=== PATIENT | female | born 1940 | race Caucasian/White ===

== ENCOUNTER 2018-06-21 18:01 | Inpatient (IN) | payer MEDICARE, OTHER ==
[2018-06-21] MEDS ORDERED: Diltiazem 50 MG/10 ML SDV IVPUSH STA ×2 (18:17→19:17)
[2018-06-21] MEDS ORDERED: Diltiazem 125 MG in Sodium Chloride 0.9% 100 ML IV SCH (18:30)
[2018-06-21] MEDS ORDERED: Rivaroxaban 10 MG Tab PO STA (18:47)
--- NOTE | 2018-06-21 18:53 | EDM.PDOC ---
ED HPI GENERAL MEDICAL PROBLEM - General Chief Complaint: Cardiovascular Problem Stated Complaint: RAPID HEART RATE/ SHAKEY Time Seen by Provider: 06/21/18 18:11 Source of Information: Reports: Patient, Family (), RN Notes Reviewed History Limitations: Reports: No Limitations - History of Present Illness INITIAL COMMENTS - FREE TEXT/NARRATIVE: The patient and her are visiting from the [facility] in [place], driving to [place]. 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 She states that when she got on the bed, it felt like it was vibrating. The patient appreciate her own heartbeat. No associated dyspnea or chest pain. She states that she had slight lightheadedness when she was exerting herself, but has none at rest. No prior similar symptoms. - Related Data Allergies Allergy/AdvReac Type Severity Reaction Status Date / Time No Known Allergies Allergy Verified 06/21/18 18:08 Home Meds: Home Meds Hydrochlorothiazide [Microzide] 0 mg PO DAILY 06/21/18 [History] Levothyroxine Sodium [Synthroid] 0 mcg PO DAILY 06/21/18 [History] Lisinopril/Hydrochlorothiazide [Lisinopril-HCTZ 10-12.5 MG] 0 mg PO DAILY [History] Past Medical History Cardiovascular History: Reports: Hypertension Gastrointestinal History: Reports: Hemorrhoids (internal) Musculoskeletal History: Reports: Other (See Below) Other Musculoskeletal History: osteopenia;left sciatica issues Endocrine/Metabolic History: Reports: Hypothyroidism, Osteopenia - Past Surgical History HEENT Surgical History: Reports: Tonsillectomy GI Surgical History: Reports: Colonoscopy, Other (See Below) (Exploratory laparoscopy) Social & Family History - Tobacco Use Smoking Status *Q: Never Smoker Second Hand Smoke Exposure: No - Caffeine Use Caffeine Use: Reports: Coffee - Alcohol Use Alcohol Use History: Yes Alcohol Use Frequency: Socially - Recreational Drug Use Recreational Drug Use: No - Living Situation & Occupation Living situation: Reports: , with Spouse Occupation: Retired ED ROS GENERAL - Review of Systems Review Of Systems: ROS reveals no pertinent complaints other than HPI. ED EXAM, GENERAL - Physical Exam Exam: See Below Exam Limited By: No Limitations General Appearance: Alert, WD/WN, No Apparent Distress Eye Exam: Bilateral Eye: EOMI, Normal Inspection Ears: Normal External Exam, Hearing Grossly Normal Nose: Normal Inspection Throat/Mouth: Normal Inspection, Normal Lips, Normal Voice, No Airway Compromise Head: Atraumatic, Normocephalic Neck: Normal Inspection, Full Range of Motion Respiratory/Chest: No Respiratory Distress, Lungs Clear, Normal Breath Sounds, No Accessory Muscle Use Cardiovascular: Normal Peripheral Pulses, No Edema, No Gallop, No JVD, No Murmur , No Rub, Tachycardia, Irregularly Irregular Peripheral Pulses: 4+: Radial (L), Radial (R) GI/Abdominal: Normal Bowel Sounds, Soft, Non-Tender, No Organomegaly, No Distention, No Abnormal Bruit, No Mass (Female) Exam: Deferred Rectal (Female) Exam: Deferred Back Exam: Normal Inspection, Full Range of Motion, NT Extremities: Normal Inspection, Normal Range of Motion, No Pedal Edema, Normal Capillary Refill Neurological: Alert, Oriented, Normal Cognition, No Motor/Sensory Deficits Psychiatric: Normal Affect Skin Exam: Warm, Dry, Intact, Normal Color, No Rash EKG INTERPRETATION EKG Date: 06/21/18 Time: 18:12 Rhythm: A-Flutter (with 2:1 conduction) Rate (Beats/Min): 138 [place]: Normal P-Wave: Present QRS: Normal ST-T: Normal QT: Prolonged (QTc 596 ms) Comparison: NA - No Prior EKG Course - Vital Signs Last Recorded V/S: Last Vital Signs Temp 35.8 C 06/21/18 18:10 Pulse 133 H 06/21/18 18:35 Resp 20 06/21/18 18:10 BP 136/71 06/21/18 18:35 Pulse Ox 100 06/21/18 18:10 - Orders/Labs/Meds Orders: Active Orders 24 hr Category Date Time Status EKG Documentation Completion [RC] ASDIRECTED Care 06/21/18 18:09 Active Chest 1V Frontal [CR] Stat Exams 06/21/18 18:18 Taken Diltiazem 125 mg Med 06/21/18 18:30 Active Sodium Chloride 0.9% [Normal Saline] 100 ml IV TITRATE Magnesium Sulfate/Water [Magnesium Sulfate 2 GM in Med 06/21/18 19:05 Ordered Water 50 ML] 2 gm Premix Bag 1 bag IV ONETIME Sodium Chloride 0.9% @ 150 MLS/HR (1000ml Bag) Med 06/21/18 19:15 Ordered Sodium Chloride 0.9% [Normal Saline] 1,000 ml IV ASDIRECTED EKG 12 Lead [EK] Stat Ther 06/21/18 18:09 Ordered Medication Orders Diltiazem HCl 125 mg/ Sodium (Chloride) 125 mls @ 10 mls/hr IV TITRATE ROHAN; Protocol Last Admin: 06/21/18 18:34 Dose: 10 mg/hr, 10 mls/hr Labs: Laboratory Tests 06/21/18 06/21/18 06/21/18 Range/Units 18:19 18:19 18:19 WBC 6.04 (3.98-10.04) K/mm3 RBC 4.79 (3.98-5.22) M/mm3 Hgb 13.9 (11.2-15.7) gm/L Hct 41.1 (34.1-44.9) % MCV 85.8 (79.4-94.8) fl MCH 29.0 (25.6-32.2) pg MCHC 33.8 (32.2-35.5) g/dl RDW Std Deviation 42.4 (36.4-46.3) fL Plt Count 252 (182-369) K/mm3 MPV 9.0 L (9.4-12.3) fl Neutrophils % (Manual) 49 (40-60) % Band Neutrophils % 0 (0-10) % Lymphocytes % (Manual) 44 H (20-40) % Atypical Lymphs % 0 % Monocytes % (Manual) 5 (2-10) % Eosinophils % (Manual) 2 (0.7-5.8) % Basophils % (Manual) 0 L (0.1-1.2) Platelet Estimate Adequate Plt Morphology Comment Normal RBC Morph Comment Normal D-Dimer, Quantitative < 0.19 L (0.19-0.50) mg/L Sodium 130 L (136-145) mEq/L Potassium 3.2 L (3.5-5.1) mEq/L Chloride 91 L (98-107) mEq/L Carbon Dioxide 26 (21-32) mEq/L Anion Gap 16.2 H (5-15) BUN 12 (7-18) mg/dL Creatinine 0.8 (0.55-1.02) mg/dL Est Cr Clr Drug Dosing 59.41 mL/min Estimated GFR (MDRD) > 60 (>60) mL/min BUN/Creatinine Ratio 15.0 (14-18) Glucose 107 (83-115) mg/dL Calcium 9.4 (8.5-10.1) mg/dL Magnesium 1.6 L (1.8-2.4) mg/dl Total Bilirubin 0.7 (0.2-1.0) mg/dL AST 31 (15-37) U/L ALT 29 (14-59) U/L Alkaline Phosphatase 62 (46-116) U/L Troponin I 0.059 H* (0.00-0.056) ng/mL Total Protein 7.9 (6.4-8.2) g/dl Albumin 4.6 (3.4-5.0) g/dl Globulin 3.3 gm/dL Albumin/Globulin Ratio 1.4 (1-2) Meds: Medications Generic Name Dose Route Start Last Admin Trade Name Freq PRN Reason Stop Dose Admin Diltiazem HCl 125 mg/ Sodium 125 mls @ 10 mls/hr 06/21/18 18:30 06/21/18 18: 34 Chloride IV 10 mg/hr TITRATE ROHAN 10 mls/hr Administration Protocol 10 MG/HR Discontinued Medications Generic Name Dose Route Start Last Admin Trade Name Freq PRN Reason Stop Dose Admin Diltiazem HCl 5 mg 06/21/18 18:17 06/21/18 18:35 Cardizem IVPUSH 06/21/18 18:18 5 mg ONETIME STA Administration Rivaroxaban 20 mg 06/21/18 18:47 06/21/18 18:55 Xarelto PO 06/21/18 18:48 20 mg ONETIME STA Administration - Re-Assessments/Exams Free Text/Narrative Re-Assessment/Exam: 06/21/18 18:48 The patient's ECG appears to demonstrate atrial flutter with 2-1 conduction, however, on examination, her heart rate was irregularly irregular, and looking at the monitor, it appears that the patient is in atrial fibrillation. The patient was given a small dose of IV Cardizem, and is now on a Cardizem drip , that we will titrate to a heart rate under 100. After discussing the pros and cons of a variety of different anticoagulants, the patient has agreed to begin with Xarelto. We will provide the patient a coupon for a 30 day free supply, and after she is discharged from the hospital and returns home to [place], she can follow-up with her PCP to determine which long-term anticoagulant she would like to be on. 06/21/18 19:04 Portable chest radiograph appears to be grossly normal. Cardiac silhouette is within normal limits. No pulmonary vascular congestion. No pleural effusions. No focal infiltrate. No pneumothorax. Formal read per the Radiologist pending. 06/21/18 19:05 The patient's sodium has returned low at 132, potassium low at 3.2, with a magnesium low at 1.6. I have ordered NS at 150 mL per hour, and a 2g Mg-rider. After the magnesium has finished infusing, her potassium will need to be replaced. The patient's troponin has returned slightly elevated at 0.059. This does not indicate genuine cardiac damage, although should be repeated. I am recommending admission to the hospital. 06/21/18 19:11 The above was relayed to the patient and her . They are agreeable to being admitted. 06/21/18 19:[address] Sanders at 19:11. He agreed to the patient being admitted to telemetry. The patient's heart rate is around 115 to 120. I will order another 5 mg Cardizem IV push and increase the cardizem gtt to 15 mg/hr. 06/21/18 19:29 Notified that the patient meets criterion for inpatient, to the ICU. Departure - Departure Time of Disposition: 19:14 Disposition: Admitted As Inpatient 67 Condition: Fair Clinical Impression: New onset atrial fibrillation, Hyponatremia, Hypokalemia, Hypomagnesemia, Elevated troponin - My Orders Last 24 Hours: My Active Orders 06/21/18 18:09 EKG Documentation Completion [RC] ASDIRECTED EKG 12 Lead [EK] Stat 06/21/18 18:18 Chest 1V Frontal [CR] Stat 06/21/18 18:30 Diltiazem 125 mg Sodium Chloride 0.9% [Normal Saline] 100 ml IV TITRATE 06/21/18 19:05 Magnesium Sulfate/Water [Magnesium Sulfate 2 GM in Water 50 ML] 2 gm Premix Bag 1 bag IV ONETIME 06/21/18 19:15 Sodium Chloride 0.9% @ 150 MLS/HR (1000ml Bag) Sodium Chloride 0.9% [Normal Saline] 1,000 ml IV ASDIRECTED - Assessment/Plan Last 24 Hours: My Active Orders 06/21/18 18:09 EKG Documentation Completion [RC] ASDIRECTED EKG 12 Lead [EK] Stat 06/21/18 18:18 Chest 1V Frontal [CR] Stat 06/21/18 18:30 Diltiazem 125 mg Sodium Chloride 0.9% [Normal Saline] 100 ml IV TITRATE 06/21/18 19:05 Magnesium Sulfate/Water [Magnesium Sulfate 2 GM in Water 50 ML] 2 gm Premix Bag 1 bag IV ONETIME 06/21/18 19:15 Sodium Chloride 0.9% @ 150 MLS/HR (1000ml Bag) Sodium Chloride 0.9% [Normal Saline] 1,000 ml IV ASDIRECTED
[2018-06-21] MEDS ORDERED: Magnesium Sulfate/Water 2 GM in Premix Bag 1 BAG IV ONE (19:05)
[2018-06-21] MEDS: Diltiazem 125 MG in Sodium Chloride 0.9% 100 ML IV SCH (19:25)
[2018-06-21] MEDS: Sodium Chloride 0.9% 1,000 ML IV SCH (20:55)
[2018-06-21] MEDS ORDERED: Ketorolac 30 MG/ML SDV IV PRN (21:01)
[2018-06-21] MEDS ORDERED: Bisacodyl 5 MG Tab PO PRN (21:01)
[2018-06-21] MEDS ORDERED: Ondansetron 4 MG Tab.DIS PO PRN (21:01)
[2018-06-21] MEDS ORDERED: Polyethylene Glycol 3350 Powder 17 GM Packet PO PRN (21:01)
[2018-06-21] MEDS ORDERED: Magnesium Hydroxide 400 MG/5 ML Susp 30 ML Cup PO PRN (21:01)
[2018-06-21] MEDS ORDERED: Temazepam 7.5 MG Cap PO PRN (21:01)
[2018-06-21] MEDS ORDERED: Albuterol 0.083% 2.5 MG/3 ML Neb Soln NEB PRN (21:01)
[2018-06-21] MEDS ORDERED: Ondansetron 4 MG/2 ML SDV IV PRN (21:01)
[2018-06-21] MEDS ORDERED: Acetaminophen 325 MG Tab PO PRN (21:01)
[2018-06-21] MEDS ORDERED: HYDROmorphone 0.5 MG/0.5 ML SYRINGE IVPUSH PRN (21:01)
[2018-06-21] MEDS ORDERED: Albuterol/Ipratropium 3.0-0.5 MG/3 ML Neb Soln NEB PRN (21:01)
[2018-06-21] MEDS ORDERED: Docusate Sodium 100 MG Cap PO PRN (21:01)
--- NOTE | 2018-06-21 21:26 | PCM.HP ---
H&P History of Present Illness - General Date of Service: 06/21/18 Admit Problem/Dx: Admission Diagnosis/Problem Admission Diagnosis/Problem Atrial fibrillation Source of Information: Patient, Provider History Limitations: Reports: No Limitations - History of Present Illness Initial Comments - Free Text/Narative: HPI: This is a 78 yo female with past medical hx/o HTN, Hypothyroid, Hemorrhoids, Osteopenia who comes in for new onset Afib, elevated troponin, and electrolyte abnormalities. Pt c/o palpitations, "vibrating" feeling in chest, light- headedness with exertion, chronic sinus congestion and constipation. She reports no F/C, chest pain, SOB, nausea, vomiting, diarrhea. Her symptoms improved after receiving Diltiazem, Xaralto, IVF and Magnesium in the ED. Her initial workup in the ED showed a CBC remarkable for MPV 9, Lymph 44 %. Her chemistry is remarkable for Na 130, K 3.2, Cl 91, A Gap 16.2, Mg 1.6. D- dimer <0.19. Troponin elevated at 0.059. EKG shows HR 138, A Flutter with prolonged QT interval. Principal Statistical Scientist shows Atrial Fibrillation. CXR shows no acute abnormalities per ED read. She is subsequently admitted to the ICU. She is a full code. Her PCP is out of town; she is from [place]. - Related Data Allergies/Adverse Reactions: Allergies Allergy/AdvReac Type Severity Reaction Status Date / Time No Known Allergies Allergy Verified 06/21/18 18:08 Home Medications: Home Meds Hydrochlorothiazide [Microzide] 0 mg PO DAILY 06/21/18 [History] Levothyroxine Sodium [Synthroid] 0 mcg PO DAILY 06/21/18 [History] Lisinopril/Hydrochlorothiazide [Lisinopril-HCTZ 10-12.5 MG] 0 mg PO DAILY [History] Past Medical History Cardiovascular History: Reports: Hypertension Gastrointestinal History: Reports: Hemorrhoids Musculoskeletal History: Reports: Other (See Below) Other Musculoskeletal History: osteopenia;left sciatica issues Endocrine/Metabolic History: Reports: Hypothyroidism, Osteopenia - Past Surgical History HEENT Surgical History: Reports: Tonsillectomy GI Surgical History: Reports: Colonoscopy, Other (See Below) Social & Family History - Tobacco Use Smoking Status *Q: Never Smoker Second Hand Smoke Exposure: No - Caffeine Use Caffeine Use: Reports: Coffee - Recreational Drug Use Recreational Drug Use: No - Living Situation & Occupation Living situation: Reports: , with Spouse Occupation: Retired H&P Review of Systems - Review of Systems: Review Of Systems: See Below General: Reports: No Symptoms. Denies: Fever, Chills, Weakness, Fatigue HEENT: Reports: Glasses, Sinus Congestion (chronic) Pulmonary: Reports: No Symptoms. Denies: Shortness of Breath Cardiovascular: Reports: Lightheadedness (with exertion), Blood Pressure Problem. Denies: Chest Pain, Dyspnea on Exertion, Orthopnea, Edema Gastrointestinal: Reports: Constipation. Denies: Abdominal Pain, Diarrhea, Decreased Appetite, Nausea, Vomiting Genitourinary: Reports: No Symptoms. Denies: Dysuria, Frequency, Burning, Pain , Urgency Musculoskeletal: Reports: No Symptoms Skin: Reports: No Symptoms Psychiatric: Reports: No Symptoms Neurological: Reports: No Symptoms. Denies: Dizziness, Headache, Syncope Hematologic/Lymphatic: Reports: No Symptoms Immunologic: Reports: No Symptoms Exam - Exam Exam: See Below - Vital Signs Vital Signs: Last Vital Signs Temp 96.5 F 06/21/18 18:10 Pulse 111 H 06/21/18 19:25 Resp 20 06/21/18 18:10 BP 137/113 H 06/21/18 19:25 Pulse Ox 100 06/21/18 18:10 Weight: 136 lb 14.4 oz - Exam Quality Assessment: DVT Prophylaxis. No: Supplemental Oxygen General: Alert, Oriented, Cooperative, Mild Distress HEENT: PERRLA, Hearing Intact, Mucosa Moist & Chical, Nares Patent, Normal Nasal Septum, Posterior Pharynx Clear, Conjunctiva Clear, EOMI, EACs Clear, TMs Clear Neck: Supple, Trachea Midline, 2 Lungs: Clear to Auscultation, Normal Respiratory Effort Cardiovascular: Irregular Rhythm. No: Regular Rate (irregular) GI/Abdominal Exam: Normal Bowel Sounds, Soft, Non-Tender, No Organomegaly, No Distention, No Abnormal Bruit, No Mass, Pelvis Stable (Female) Exam: Deferred Rectal (Female) Exam: Deferred Back Exam: Normal Inspection, Full Range of Motion, NT Extremities: Normal Inspection, Normal Range of Motion, Non-Tender, No Pedal Edema, Normal Capillary Refill Peripheral Pulses: 3+: Posterior Tibial (L), Posterior Tibial (R), Dorsalis Pedis (L), Dorsalis Pedis (R) Skin: Warm, Dry, Intact Neurological: Cranial Nerves Intact (grossly) Neuro Extensive - Mental Status: Alert, Oriented x3, Normal Mood/Affect, Normal Cognition Psychiatric: Alert, Normal Affect, Normal Mood - Patient Data Lab Results Last 24 hrs: Laboratory Results - last 24 hr 06/21/18 06/21/18 06/21/18 Range/Units 18:19 18:19 18:19 WBC 6.04 (3.98-10.04) K/mm3 RBC 4.79 (3.98-5.22) M/mm3 Hgb 13.9 (11.2-15.7) gm/L Hct 41.1 (34.1-44.9) % MCV 85.8 (79.4-94.8) fl MCH 29.0 (25.6-32.2) pg MCHC 33.8 (32.2-35.5) g/dl RDW Std Deviation 42.4 (36.4-46.3) fL Plt Count 252 (182-369) K/mm3 MPV 9.0 L (9.4-12.3) fl Neutrophils % (Manual) 49 (40-60) % Band Neutrophils % 0 (0-10) % Lymphocytes % (Manual) 44 H (20-40) % Atypical Lymphs % 0 % Monocytes % (Manual) 5 (2-10) % Eosinophils % (Manual) 2 (0.7-5.8) % Basophils % (Manual) 0 L (0.1-1.2) Platelet Estimate Adequate Plt Morphology Comment Normal RBC Morph Comment Normal D-Dimer, Quantitative < 0.19 L (0.19-0.50) mg/L Sodium 130 L (136-145) mEq/L Potassium 3.2 L (3.5-5.1) mEq/L Chloride 91 L (98-107) mEq/L Carbon Dioxide 26 (21-32) mEq/L Anion Gap 16.2 H (5-15) BUN 12 (7-18) mg/dL Creatinine 0.8 (0.55-1.02) mg/dL Est Cr Clr Drug Dosing 59.41 mL/min Estimated GFR (MDRD) > 60 (>60) mL/min BUN/Creatinine Ratio 15.0 (14-18) Glucose 107 (83-115) mg/dL Calcium 9.4 (8.5-10.1) mg/dL Magnesium 1.6 L (1.8-2.4) mg/dl Total Bilirubin 0.7 (0.2-1.0) mg/dL AST 31 (15-37) U/L ALT 29 (14-59) U/L Alkaline Phosphatase 62 (46-116) U/L Troponin I 0.059 H* (0.00-0.056) ng/mL Total Protein 7.9 (6.4-8.2) g/dl Albumin 4.6 (3.4-5.0) g/dl Globulin 3.3 gm/dL Albumin/Globulin Ratio 1.4 (1-2) Result Diagrams: 06/21/18 18:19 06/21/18 18:19 - Problem List (1) Elevated troponin SNOMED Code(s): 622159101, 284938622, 238326090 ICD Code: R74.8 - ABNORMAL LEVELS OF OTHER SERUM ENZYMES Status: Acute Current Visit: Yes (2) Hypokalemia SNOMED Code(s): 81267674 ICD Code: E87.6 - HYPOKALEMIA Status: Acute Current Visit: Yes (3) Hypomagnesemia SNOMED Code(s): 449579071 ICD Code: E83.42 - HYPOMAGNESEMIA Status: Acute Current Visit: Yes (4) Hyponatremia SNOMED Code(s): 36732575 ICD Code: E87.1 - HYPO-OSMOLALITY AND HYPONATREMIA Status: Acute Current Visit: Yes (5) New onset atrial fibrillation SNOMED Code(s): 81794568 ICD Code: I48.91 - UNSPECIFIED ATRIAL FIBRILLATION Status: Acute Current Visit: Yes Problem List Initiated/Reviewed/Updated: Yes Orders Last 24hrs: Active Orders 24 hr Category Date Time Status Admission Status [Patient Status] [ADT] Routine ADT 06/21/18 20:18 Active Cardiac Monitoring [RC] CONTINUOUS Care 06/21/18 21:01 Active Height and Weight [RC] DAILY Care 06/21/18 21:01 Active Intake and Output [RC] QSHIFT Care 06/21/18 21:01 Active May Shower [RC] ASDIRECTED Care 06/21/18 21:01 Active Oxygen Therapy [RC] PRN Care 06/21/18 21:01 Active Pulse Oximetry [RC] PRN Care 06/21/18 21:01 Active RT Aerosol Therapy [RC] ASDIRECTED Care 06/21/18 21:03 Active Up ad Celena [RC] ASDIRECTED Care 06/21/18 21:01 Active VTE/DVT Education [RC] PER UNIT ROUTINE Care 06/21/18 21:01 Active Vital Signs [RC] Q4H Care 06/21/18 21:01 Active Heart Healthy Diet [DIET] Diet 06/22/18 Breakfast Active Chest 1V Frontal [CR] Stat Exams 06/21/18 18:18 Taken Echo Comp wo Cont [US] Routine Exams 06/21/18 21:07 Ordered BASIC METABOLIC PANEL,BMP [CHEM] AM Lab 06/22/18 05:11 Ordered BASIC METABOLIC PANEL,BMP [CHEM] AM Lab 06/23/18 05:11 Ordered BASIC METABOLIC PANEL,BMP [CHEM] AM Lab 06/24/18 05:11 Ordered BASIC METABOLIC PANEL,BMP [CHEM] AM Lab 06/25/18 05:11 Ordered BASIC METABOLIC PANEL,BMP [CHEM] AM Lab 06/26/18 05:11 Ordered CBC WITH AUTO DIFF [HEME] AM Lab 06/22/18 05:11 Ordered CBC WITH AUTO DIFF [HEME] AM Lab 06/23/18 05:11 Ordered CBC WITH AUTO DIFF [HEME] AM Lab 06/24/18 05:11 Ordered CBC WITH AUTO DIFF [HEME] AM Lab 06/25/18 05:11 Ordered CBC WITH AUTO DIFF [HEME] AM Lab 06/26/18 05:11 Ordered MAGNESIUM [CHEM] AM Lab 06/22/18 05:11 Ordered MAGNESIUM [CHEM] AM Lab 06/23/18 05:11 Ordered MAGNESIUM [CHEM] AM Lab 06/24/18 05:11 Ordered MAGNESIUM [CHEM] AM Lab 06/25/18 05:11 Ordered MAGNESIUM [CHEM] AM Lab 06/26/18 05:11 Ordered TROPONIN I [CHEM] Q6H Lab 06/22/18 00:00 Ordered TROPONIN I [CHEM] Q6H Lab 06/22/18 06:00 Ordered TROPONIN I [CHEM] Q6H Lab 06/22/18 12:00 Ordered TROPONIN I [CHEM] Q6H Lab 06/22/18 18:00 Ordered TSH [CHEM] AM Lab 06/22/18 05:11 Ordered Acetaminophen [Tylenol] Med 06/21/18 21:01 Active 650 mg PO Q4H PRN Albuterol [Proventil Neb Soln] Med 06/21/18 21:01 Active 2.5 mg NEB Q2H PRN Albuterol/Ipratropium [DuoNeb 3.0-0.5 MG/3 ML] Med 06/21/18 21:01 Active 3 ml NEB Q4H PRN Bisacodyl [Dulcolax] Med 06/21/18 21:01 Active 5 mg PO DAILY PRN Diltiazem 125 mg Med 06/21/18 19:30 Active Sodium Chloride 0.9% [Normal Saline] 100 ml IV TITRATE Docusate Sodium [Colace] Med 06/21/18 21:01 Active 100 mg PO BID PRN Docusate Sodium/Sennosides [Senna Plus] Med 06/21/18 21:01 Active 1 tab PO BID PRN HYDROmorphone [Dilaudid] Med 06/21/18 21:01 Active 0.25 mg IVPUSH Q2H PRN Ketorolac [Toradol] Med 06/21/18 21:01 Ordered 30 mg IV Q6H PRN Magnesium Hydroxide [Milk of Magnesia] Med 06/21/18 21:01 Ordered 30 ml PO Q12H PRN Magnesium Rep Pharmacy to Dose [Pharmacy to Dose - Med 06/21/18 21:07 Ordered Magnesium Replacement] 1 dose .XX ASDIRECTED PRN Ondansetron [Zofran ODT] Med 06/21/18 21:01 Ordered 4 mg PO Q4H PRN Ondansetron [Zofran] Med 06/21/18 21:01 Ordered 4 mg IV Q4H PRN Polyethylene Glycol 3350 [MiraLAX] Med 06/21/18 21:01 Ordered 17 gm PO DAILY PRN Potassium Chloride [KCl 10 MEQ in Water 100 ML] 10 meq Med 06/21/18 21:15 Ordered Premix Bag 1 bag IV Q1H Potassium Rep Pharmacy to Dose [Pharmacy to Dose - Med 06/21/18 21:07 Ordered Potassium Replacement] 1 dose .XX ASDIRECTED PRN Sodium Chloride 0.9% [Normal Saline] 1,000 ml Med 06/21/18 19:15 Active IV ASDIRECTED Temazepam [Restoril] Med 06/21/18 21:01 Ordered 7.5 mg PO BEDTIME PRN Resuscitation Status Routine Resus Stat 06/21/18 21:01 Ordered EKG 12 Lead [EK] Stat Ther 06/21/18 18:09 Ordered Medication Orders Acetaminophen (Tylenol) 650 mg PO Q4H PRN PRN Reason: Pain (Mild 1-3)/fever Albuterol (Proventil Neb Soln) 2.5 mg NEB Q2H PRN PRN Reason: Shortness Of Breath/wheezing Albuterol/Ipratropium (Duoneb 3.0-0.5 Mg/3 Ml) 3 ml NEB Q4H PRN PRN Reason: Shortness Of Breath/wheezing Bisacodyl (Dulcolax) 5 mg PO DAILY PRN PRN Reason: Constipation Docusate Sodium (Colace) 100 mg PO BID PRN PRN Reason: Constipation Hydromorphone HCl (Dilaudid) 0.25 mg IVPUSH Q2H PRN PRN Reason: Pain (severe 7-10) Sodium Chloride (Normal Saline) 1,000 mls @ 150 mls/hr IV ASDIRECTED ROHAN Last Admin: 06/21/18 20:55 Dose: 150 mls/hr Diltiazem HCl 125 mg/ Sodium (Chloride) 125 mls @ 15 mls/hr IV TITRATE ROHAN; Protocol Last Admin: 06/21/18 19:25 Dose: 15 mg/hr, 15 mls/hr Potassium Chloride 10 meq/ (Premix) 100 mls @ 100 mls/hr IV Q1H ROHAN Stop: 06/22/18 01:14 Ketorolac Tromethamine (Toradol) 30 mg IV Q6H PRN PRN Reason: Pain (moderate 4-6) Magnesium Hydroxide (Milk Of Magnesia) 30 ml PO Q12H PRN PRN Reason: Constipation Magnesium Sulfate (Pharmacy To Dose - Magnesium Replacement) 1 dose .XX ASDIRECTED PRN PRN Reason: RX TO WATCH MAG LEVELS Ondansetron HCl (Zofran Odt) 4 mg PO Q4H PRN PRN Reason: nausea, able to take PO Ondansetron HCl (Zofran) 4 mg IV Q4H PRN PRN Reason: Nausea/Vomiting Polyethylene Glycol (Miralax) 17 gm PO DAILY PRN PRN Reason: Constipation Potassium Chloride (Pharmacy To Dose - Potassium Replacement) 1 dose .XX ASDIRECTED PRN PRN Reason: RX TO WATCH K LEVELS Senna/Docusate Sodium (Senna Plus) 1 tab PO BID PRN PRN Reason: Constipation Temazepam (Restoril) 7.5 mg PO BEDTIME PRN PRN Reason: Sleep Assessment/Plan Comment:: I/P: Acute: New onset Atrial Flutter/Fibrillation * Risk factors: Hypothyroidism, chronic use of Sudafed (took every day for many years, stopped, but last month took daily for 1 month) * Palpitations and "vibrating" feeling, lightheadedness * EKG in ED--> HR 138, Aflutter with prolonged QT interval * Principal Statistical Scientist in ED showed irregularly irregular rhythm * CXR in ED --> no acute abnormalities * D-dimer <0.19 * Cardizem started in ED--> continue * Xaralto 20mg started in ED--> continue QDaily * ECHO ordered * Monitor in ICU Elevated Troponin * 0.059 in ED * EKG in ED --> no ST elevation * Asymptomatic; no CP, SOB, N/V * Serial Troponins Hypokalemia * 3.2 * Monitor and Replenish PRN Hypomagnesemia * 1.6 * Monitor and Replenish PRN Hyponatremia * 130 * NS IVF Chronic: HTN Hypothyroid * TSH last checked 1 year ago * TSH pending Hemorrhoids Osteopenia Sinus congestion * unsure if has allergies but has had this for 50+ years * Sudafed was "the only thing that works" * Has not tried OTC antihistamines, but has tried Flonase * Recommend f/u with PCP and forestry contractor Plan: Admitted to ICU She remains stable Other orders as indicated above Routine AM labs Heart Healthy Diet DVT Prophylaxis: Xaralto GI Prophylaxis: Pepcid Code Status: Full Code; PCP: Out of town; from [place]
[2018-06-21] MEDS ORDERED: Acetaminophen/oxyCODONE 325-5 MG Tab PO PRN (21:28)
[2018-06-21] MEDS: Potassium Chloride 10 MEQ in Premix Bag 1 BAG IV SCH ×3 (21:53→23:53)
[2018-06-21] MEDS ORDERED: Magnesium Sulfate/Water 50 ML IV ONE (22:00)
[2018-06-22] MEDS: Potassium Chloride 10 MEQ in Premix Bag 1 BAG IV SCH (01:04)
[2018-06-22] MEDS: Sodium Chloride 0.9% 1,000 ML IV SCH (03:40)
[2018-06-22] MEDS: Diltiazem 125 MG in Sodium Chloride 0.9% 100 ML IV SCH (03:51)
[2018-06-22] MEDS: Levothyroxine 112 MCG Tab PO SCH (05:48)
--- NOTE | 2018-06-22 07:39 | PCM.PN ---
- General Info Date of Service: 06/22/18 Admission Dx/Problem (Free Text): Admission Diagnosis/Problem Admission Diagnosis/Problem Atrial fibrillation Subjective Update: Follow Up Functional Status: Reports: Pain Controlled, Tolerating Diet, Ambulating, Urinating. Denies: New Symptoms - Review of Systems General: Denies: Fever, Chills Pulmonary: Denies: Shortness of Breath Cardiovascular: Denies: Chest Pain, Palpitations, Dyspnea on Exertion, Lightheadedness Gastrointestinal: Denies: Abdominal Pain, Nausea, Vomiting Genitourinary: Reports: No Symptoms Musculoskeletal: Reports: No Symptoms Skin: Denies: Cyanosis, Bruising Neurological: Denies: Confusion, Difficulty Walking, Weakness, Gait Disturbance Psychiatric: Denies: Depression, Anxiety, Agitation, Hallucinations Systems Review Comment:: No overnight or acute issues. She is doing relatively well. She report no complaints. Her heart rate is controlled on cardizem drip. Her sodium is not at 130. Her lipid panel is abnormal and her last troponin level is normal. - Patient Data Vitals - Most Recent: Last Vital Signs Temp 36.6 C 06/21/18 21:01 Pulse 111 H 06/21/18 19:25 Resp 20 06/21/18 21:01 BP 98/52 L 06/22/18 07:00 Pulse Ox 96 06/21/18 21:01 Weight - Most Recent: 62.414 kg I&O - Last 24 Hours: Intake & Output 06/21/18 06/22/18 06/22/18 22:59 06:59 14:59 Intake Total 1990 Output Total 2500 Balance -510 Lab Results Last 24 Hours: Laboratory Results - last 24 hr 06/21/18 06/21/18 06/21/18 Range/Units 18:19 18:19 18:19 WBC 6.04 (3.98-10.04) K/mm3 RBC 4.79 (3.98-5.22) M/mm3 Hgb 13.9 (11.2-15.7) gm/L Hct 41.1 (34.1-44.9) % MCV 85.8 (79.4-94.8) fl MCH 29.0 (25.6-32.2) pg MCHC 33.8 (32.2-35.5) g/dl RDW Std Deviation 42.4 (36.4-46.3) fL Plt Count 252 (182-369) K/mm3 MPV 9.0 L (9.4-12.3) fl Neut % (Auto) (34.0-71.1) % Lymph % (Auto) (19.3-51.7) % [place] % (Auto) (4.7-12.5) % Eos % (Auto) (0.7-5.8) Baso % (Auto) (0.1-1.2) % Neut # (Auto) (1.56-6.13) K/mm3 Lymph # (Auto) (1.18-3.74) K/mm3 [place] # (Auto) (0.24-0.36) K/mm3 Eos # (Auto) (0.04-0.36) K/mm3 Baso # (Auto) (0.01-0.08) K/mm3 Neutrophils % (Manual) 49 (40-60) % Band Neutrophils % 0 (0-10) % Lymphocytes % (Manual) 44 H (20-40) % Atypical Lymphs % 0 % Monocytes % (Manual) 5 (2-10) % Eosinophils % (Manual) 2 (0.7-5.8) % Basophils % (Manual) 0 L (0.1-1.2) Platelet Estimate Adequate Plt Morphology Comment Normal RBC Morph Comment Normal D-Dimer, Quantitative < 0.19 L (0.19-0.50) mg/L Sodium 130 L (136-145) mEq/L Potassium 3.2 L (3.5-5.1) mEq/L Chloride 91 L (98-107) mEq/L Carbon Dioxide 26 (21-32) mEq/L Anion Gap 16.2 H (5-15) BUN 12 (7-18) mg/dL Creatinine 0.8 (0.55-1.02) mg/dL Est Cr Clr Drug Dosing 59.41 mL/min Estimated GFR (MDRD) > 60 (>60) mL/min BUN/Creatinine Ratio 15.0 (14-18) Glucose 107 (83-115) mg/dL Calcium 9.4 (8.5-10.1) mg/dL Magnesium 1.6 L (1.8-2.4) mg/dl Total Bilirubin 0.7 (0.2-1.0) mg/dL AST 31 (15-37) U/L ALT 29 (14-59) U/L Alkaline Phosphatase 62 (46-116) U/L Troponin I 0.059 H* (0.00-0.056) ng/mL Total Protein 7.9 (6.4-8.2) g/dl Albumin 4.6 (3.4-5.0) g/dl Globulin 3.3 gm/dL Albumin/Globulin Ratio 1.4 (1-2) 06/22/18 06/22/18 06/22/18 Range/Units 00:11 05:50 05:50 WBC 5.98 (3.98-10.04) K/mm3 RBC 4.29 (3.98-5.22) M/mm3 Hgb 12.8 (11.2-15.7) gm/L Hct 37.3 (34.1-44.9) % MCV 86.9 (79.4-94.8) fl MCH 29.8 (25.6-32.2) pg MCHC 34.3 (32.2-35.5) g/dl RDW Std Deviation 42.1 (36.4-46.3) fL Plt Count 237 (182-369) K/mm3 MPV 9.0 L (9.4-12.3) fl Neut % (Auto) 56.5 (34.0-71.1) % Lymph % (Auto) 30.3 (19.3-51.7) % [place] % (Auto) 9.5 (4.7-12.5) % Eos % (Auto) 2.7 (0.7-5.8) Baso % (Auto) 0.8 (0.1-1.2) % Neut # (Auto) 3.38 (1.56-6.13) K/mm3 Lymph # (Auto) 1.81 (1.18-3.74) K/mm3 [place] # (Auto) 0.57 H (0.24-0.36) K/mm3 Eos # (Auto) 0.16 (0.04-0.36) K/mm3 Baso # (Auto) 0.05 (0.01-0.08) K/mm3 Neutrophils % (Manual) (40-60) % Band Neutrophils % (0-10) % Lymphocytes % (Manual) (20-40) % Atypical Lymphs % % Monocytes % (Manual) (2-10) % Eosinophils % (Manual) (0.7-5.8) % Basophils % (Manual) (0.1-1.2) Platelet Estimate Plt Morphology Comment RBC Morph Comment D-Dimer, Quantitative (0.19-0.50) mg/L Sodium (136-145) mEq/L Potassium (3.5-5.1) mEq/L Chloride (98-107) mEq/L Carbon Dioxide (21-32) mEq/L Anion Gap (5-15) BUN (7-18) mg/dL Creatinine (0.55-1.02) mg/dL Est Cr Clr Drug Dosing mL/min Estimated GFR (MDRD) (>60) mL/min BUN/Creatinine Ratio (14-18) Glucose (83-115) mg/dL Calcium (8.5-10.1) mg/dL Magnesium (1.8-2.4) mg/dl Total Bilirubin (0.2-1.0) mg/dL AST (15-37) U/L ALT (14-59) U/L Alkaline Phosphatase (46-116) U/L Troponin I 0.061 H* 0.058 H* (0.00-0.056) ng/mL Total Protein (6.4-8.2) g/dl Albumin (3.4-5.0) g/dl Globulin gm/dL Albumin/Globulin Ratio (1-2) Med Orders - Current: Current Medications Acetaminophen (Tylenol) 650 mg PO Q4H PRN PRN Reason: Pain (Mild 1-3)/fever Albuterol (Proventil Neb Soln) 2.5 mg NEB Q2H PRN PRN Reason: Shortness Of Breath/wheezing Albuterol/Ipratropium (Duoneb 3.0-0.5 Mg/3 Ml) 3 ml NEB Q4H PRN PRN Reason: Shortness Of Breath/wheezing Bisacodyl (Dulcolax) 5 mg PO DAILY PRN PRN Reason: Constipation Docusate Sodium (Colace) 100 mg PO BID PRN PRN Reason: Constipation Famotidine (Pepcid) 20 mg PO BID [facility] Hydrochlorothiazide (Hydrochlorothiazide) 12.5 mg PO DAILY [facility] Hydromorphone HCl (Dilaudid) 0.25 mg IVPUSH Q2H PRN PRN Reason: Pain (severe 7-10) Sodium Chloride (Normal Saline) 1,000 mls @ 150 mls/hr IV ASDIRECTED [facility] Last Admin: 06/22/18 03:40 Dose: 150 mls/hr Diltiazem HCl 125 mg/ Sodium (Chloride) 125 mls @ 15 mls/hr IV TITRATE [facility]; Protocol Last Admin: 06/22/18 03:51 Dose: 10 mg/hr, 10 mls/hr Levothyroxine Sodium (Levothyroxine) 112 mcg PO ACBRK [facility] Last Admin: 06/22/18 05:48 Dose: 112 mcg Lisinopril (Prinivil) 10 mg PO DAILY [facility] Magnesium Hydroxide (Milk Of Magnesia) 30 ml PO Q12H PRN PRN Reason: Constipation Magnesium Sulfate (Pharmacy To Dose - Magnesium Replacement) 1 dose .XX ASDIRECTED PRN PRN Reason: RX TO WATCH MAG LEVELS Ondansetron HCl (Zofran Odt) 4 mg PO Q4H PRN PRN Reason: nausea, able to take PO Ondansetron HCl (Zofran) 4 mg IV Q4H PRN PRN Reason: Nausea/Vomiting Oxycodone/Acetaminophen (Percocet 325-5 Mg) 1 tab PO Q4H PRN PRN Reason: Pain (moderate 4-6) Polyethylene Glycol (Miralax) 17 gm PO DAILY PRN PRN Reason: Constipation Potassium Chloride (Pharmacy To Dose - Potassium Replacement) 1 dose .XX ASDIRECTED PRN PRN Reason: RX TO WATCH K LEVELS Rivaroxaban (Xarelto) 20 mg PO DAILY@1800 [facility] Senna/Docusate Sodium (Senna Plus) 1 tab PO BID PRN PRN Reason: Constipation Temazepam (Restoril) 7.5 mg PO BEDTIME PRN PRN Reason: Sleep Discontinued Medications Diltiazem HCl (Cardizem) 5 mg IVPUSH ONETIME STA Stop: 06/21/18 18:18 Last Admin: 06/21/18 18:35 Dose: 5 mg Diltiazem HCl (Cardizem) 5 mg IVPUSH ONETIME STA Stop: 06/21/18 19:18 Last Admin: 06/21/18 19:25 Dose: 5 mg Hydrochlorothiazide (Hydrochlorothiazide) 12.5 mg PO DAILY [facility] Diltiazem HCl 125 mg/ Sodium (Chloride) 125 mls @ 10 mls/hr IV TITRATE [facility]; Protocol Last Admin: 06/21/18 18:34 Dose: 10 mg/hr, 10 mls/hr Magnesium Sulfate 2 gm/ Premix 50 mls @ 50 mls/hr IV ONETIME ONE Stop: 06/21/18 20:04 Last Admin: 06/21/18 19:26 Dose: 50 mls/hr Potassium Chloride 10 meq/ (Premix) 100 mls @ 100 mls/hr IV Q1H [facility] Stop: 06/22/18 01:14 Last Admin: 06/22/18 01:04 Dose: 100 mls/hr Magnesium Sulfate (Magnesium Sulfate 2 Gm In Water 50 Ml) 50 mls @ 25 mls/hr IV ONETIME ONE Stop: 06/21/18 23:59 Last Admin: 06/21/18 22:39 Dose: 25 mls/hr Ketorolac Tromethamine (Toradol) 30 mg IV Q6H PRN PRN Reason: Pain (moderate 4-6) Non-Formulary Medication (Lisinopril/Hydrochlorothiazide) 0 mg PO DAILY [facility] Rivaroxaban (Xarelto) 20 mg PO ONETIME STA Stop: 06/21/18 18:48 Last Admin: 06/21/18 18:55 Dose: 20 mg - Exam General: Alert, Oriented, Cooperative HEENT: Pupils Equal, Pupils Reactive, Mucous Membr. Moist/[place] Neck: Supple, Trachea Midline Lungs: Clear to Auscultation, Normal Respiratory Effort Cardiovascular: Irregular Rhythm GI/Abdominal Exam: Normal Bowel Sounds, Soft, Non-Tender, No Organomegaly, No Distention, No Abnormal Bruit, Rebound (Female) Exam: Deferred Back Exam: Normal Inspection, Full Range of Motion Extremities: Normal Inspection, Normal Range of Motion, Non-Tender, No Pedal Edema, Normal Capillary Refill Peripheral Pulses: 2+: Dorsalis Pedis (L), Dorsalis Pedis (R) Skin: Warm, Dry, Intact Neurological: No New Focal Deficit Psy/Mental Status: Alert, Normal Affect, Normal Mood - Problem List Review Problem List Initiated/Reviewed/Updated: Yes - My Orders Last 24 Hours: My Active Orders 06/22/18 06:00 Levothyroxine 112 mcg PO ACBRK 10/06/18 09:00 Lisinopril [Prinivil] 10 mg PO DAILY hydroCHLOROthiazide 12.5 mg PO DAILY - Plan Plan:: I/P: Acute: New onset Atrial Flutter/Fibrillation * Risk factors: Hypothyroidism, chronic use of Sudafed (took every day for many years, stopped, but last month took daily for 1 month), also admits to heavy caffeine intake * Palpitations and "vibrating" feeling, lightheadedness * EKG in ED--> HR 138, Aflutter with prolonged QT interval--> now in the 70s * Excellence Coach in ED showed irregularly irregular rhythm * CXR in ED --> no acute abnormalities * D-dimer <0.19 * Cardizem started in ED--> titrate to come off and start low dose Metoprolol 25 mg po BID with parameters thereafter * [id number] score is 4--> moderate-high of stroke * Xaralto 20 mg started in ED--> continue Daily for stroke prophylaxis * ECHO ordered but likely not gonna get done and read until Sunday; patient wants to leave Mild Hyponatremia * 130--> 134 * 2/2 thiazide: she on on 2 kinds of HCTZ medications: mono and combination drugs * NS IVF; will d/c once level improves Dyslipidemia * Abnormal lipid panel * AHA diet * [employer] is not available for consultation * low dose statin starting tonight Resolved: S/p Slightly Elevated Troponin * 2/2 Troponin leak from [id number] fibrillation * 0.059 in ED; last set of troponin is now back to normal * EKG in ED --> no ST elevation * Asymptomatic; no CP, SOB, N/V S/p Hypokalemia * 3.2---> 4.1 * Monitor and Replenish PRN S/p Hypomagnesemia * 1.6--> 2.4 * Monitor and Replenish PRN Chronic: HTN Hypothyroid * TSH last checked 1 year ago * TSH is 1.916-normal Hemorrhoids Osteopenia on HCTZ Sinus congestion * unsure if has allergies but has had this for 50+ years * Sudafed was "the only thing that works" * Has not tried OTC antihistamines, but has tried Flonase * 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 She understands 2D echo is not gonna get done and read until Sunday. She also understands that not having it, may prevent us from knowing whether she has clot in her heart or not. Discharge if stable and wants to leave in AM.
[2018-06-22] MEDS: Lisinopril 10 MG Tab PO SCH (08:11)
[2018-06-22] MEDS: Famotidine 20 MG Tab PO SCH ×2 (08:12→20:06)
[2018-06-22] MEDS: Hydrochlorothiazide 12.5 MG Cap PO SCH (08:12)
[2018-06-22] MEDS ORDERED: LISINOPRIL PO SCH (09:00)
[2018-06-22] MEDS ORDERED: HYDROCHLOROTHIAZIDE PO SCH (09:00)
[2018-06-22] MEDS ORDERED: Hydrochlorothiazide 12.5 MG Cap PO SCH (09:00)
[2018-06-22] MEDS: Metoprolol Tartrate 25 MG Tab PO SCH ×2 (10:06→20:06)
[2018-06-22] MEDS ORDERED: Rivaroxaban 10 MG Tab PO SCH (18:00)
[2018-06-22] MEDS ORDERED: Simvastatin 10 MG Tab PO SCH (21:00)
[2018-06-23] MEDS: Levothyroxine 112 MCG Tab PO SCH (05:13)
[2018-06-23] MEDS: Famotidine 20 MG Tab PO SCH ×2 (10:29→10:35)
[2018-06-23] MEDS: Lisinopril 10 MG Tab PO SCH ×2 (10:30→10:35)
[2018-06-23] MEDS: Hydrochlorothiazide 12.5 MG Cap PO SCH ×2 (10:30→10:34)
[2018-06-23] MEDS: Metoprolol Tartrate 25 MG Tab PO SCH (10:34)
--- NOTE | 2018-06-23 11:27 | PCM.DCSUM1 ---
Discharge Summary - Hospital Course Brief History: This is a 78 yo female with past medical hx/o HTN, Hypothyroid, Hemorrhoids, Osteopenia who comes in for new onset Afib, elevated troponin, and electrolyte abnormalities. Pt c/o palpitations, "vibrating" feeling in chest, light-headedness with exertion, chronic sinus congestion and constipation. She reports no F/C, chest pain, SOB, nausea, vomiting, diarrhea. Her symptoms improved after receiving Diltiazem, Xaralto, IVF and Magnesium in the ED. Her initial workup in the ED showed a CBC remarkable for MPV 9, Lymph 44%. Her chemistry is remarkable for Na 130, K 3.2, Cl 91, A Gap 16.2, Mg 1.6. D-dimer < 0.19. Troponin elevated at 0.059. EKG shows HR 138, A Flutter with prolonged QT interval. Tele[employer] Equipment [employer]r shows Atrial Fibrillation. CXR shows no acute abnormalities per ED read. She is subsequently admitted to the ICU. She is a full code. Her PCP is out of town; she is from [place]. Diagnosis: Stroke: No Modified Miladis Scale: No Symptoms at All Modified [place] Scale Score: 0 - Discharge Data Discharge Date: 06/23/18 Discharge Disposition: Home, Self-Care 01 Condition: Stable - Discharge Diagnosis/Problem(s) (1) Dyslipidemia SNOMED Code(s): 061831339 ICD Code: E78.5 - HYPERLIPIDEMIA, UNSPECIFIED Status: Acute (2) Elevated troponin SNOMED Code(s): 702759543, 962157373, 119933761 ICD Code: R74.8 - ABNORMAL LEVELS OF OTHER SERUM ENZYMES Status: Resolved Problem Details: - 2/2 atrial fibrillation (troponin leak) (3) Hypokalemia SNOMED Code(s): 64488156 ICD Code: E87.6 - HYPOKALEMIA Status: Resolved (4) Hypomagnesemia SNOMED Code(s): 933447154 ICD Code: E83.42 - HYPOMAGNESEMIA Status: Resolved (5) Hyponatremia SNOMED Code(s): 90127065 ICD Code: E87.1 - HYPO-OSMOLALITY AND HYPONATREMIA Status: Chronic Problem Details: - 2/2 HCTZ (6) New onset atrial fibrillation SNOMED Code(s): 11953871 ICD Code: I48.91 - UNSPECIFIED ATRIAL FIBRILLATION Status: Resolved - Patient Summary/Data Operative Procedure(s) Performed: None Complications: None Consults: None Labs Pending at D/C: None Recommended Follow-up Testing/Procedures: 2D echo outpatient Planned Operative Procedure(s) after DC: None - Patient Instructions Diet: Heart Healthy Diet, Usual Diet as Tolerated Activity: As Tolerated Driving: Do Not Drive Showering/Bathing: May Shower Notify Provider of: Fever, Increased Pain, Swelling and Redness, Nausea and/or Vomiting Other/Special Instructions: - Please take all new medications as directed. - Resume all home medications and routine home activities as tolerated. - Recommend 2D echo on follow up appointment. - Recommend lower dose on your current HCTZ due to hyponatremia. - Check vitals and follow parameters before you take blood pressure medications. - Avoid Aspirin and NSAIDs while on xarelto! - Limit alcohol intake to no more than 7 glass a week. - Call or follow up with your PCP for any questions or concerns after discharge. - Follow up with your PCP in 1 week with repeat sodium level. - Come back or seek immediate care at the nearest medical facility should your symptoms persist or get worse - Discharge Plan *PRESCRIPTION DRUG MONITORING PROGRAM REVIEWED*: Not Applicable *COPY OF PRESCRIPTION DRUG MONITORING REPORT IN PATIENT ARACELY: Not Applicable Prescriptions/Med Rec: Metoprolol Tartrate [Lopressor] 12.5 mg PO Q12HR #60 tab atorvaSTATin [Lipitor] 10 mg PO BEDTIME #30 tab Lisinopril 10 mg PO DAILY #30 tablet Rivaroxaban [Xarelto] 20 mg PO DAILY #30 tablet Home Medications: Home Meds Levothyroxine Sodium [Synthroid] 0 mcg PO DAILY 06/21/18 [History] Hydrochlorothiazide [Microzide] 12.5 mg PO DAILY #0 06/23/18 [Rx] Lisinopril 10 mg PO DAILY #30 tablet 06/23/18 [Rx] Metoprolol Tartrate [Lopressor] 12.5 mg PO Q12HR #60 tab 06/23/18 [Rx] Rivaroxaban [Xarelto] 20 mg PO DAILY #30 tablet 06/23/18 [Rx] atorvaSTATin [Lipitor] 10 mg PO BEDTIME #30 tab 06/23/18 [Rx] Patient Handouts: Cholesterol, [id number], Heart Disease Prevention, Hyponatremia, [id number], Hypomagnesemia, Hypokalemia, Atrial Fibrillation, [id number] - Discharge Summary/Plan Comment DC Time >30 min.: Yes (45 mins) Discharge Summary/Plan Comment: Discharge to [facility] - General Info Date of Service: 06/23/18 Admission Dx/Problem (Free Text: Admission Diagnosis/Problem Admission Diagnosis/Problem Atrial fibrillation Subjective Update: Follow Up Functional Status: Reports: Pain Controlled, Tolerating Diet, Ambulating, Urinating - Review of Systems General: Denies: Fever, Weakness, Fatigue, Malaise, Chills HEENT: Reports: No Symptoms Pulmonary: Denies: Shortness of Breath Cardiovascular: Denies: Chest Pain, Palpitations, Dyspnea on Exertion, Lightheadedness Gastrointestinal: Denies: Abdominal Pain, Nausea, Vomiting Genitourinary: Reports: No Symptoms Musculoskeletal: Reports: No Symptoms Skin: Denies: Cyanosis, Mottled, Pallor, Diaphoresis Neurological: Denies: Confusion, Dizziness, Headache, Syncope, Difficulty Walking, Weakness, Gait Disturbance Psychiatric: Denies: Depression, Anxiety, Agitation, Hallucinations Systems Review Comment: No significant overnight or acute issues. She rested well last night and has no complaints this AM. She feel good. However overnight nurse tells her heart rate was in the 40s-50s but she was asymptomatic. - Patient Data Vitals - Most Recent: Last Vital Signs Temp 36.7 C 06/23/18 08:00 Pulse 65 06/23/18 08:00 Resp 15 06/23/18 08:00 BP 128/75 06/23/18 08:00 Pulse Ox 97 06/23/18 08:00 Weight - Most Recent: 62.369 kg I&O - Last 24 hours: Intake & Output 06/22/18 06/23/18 06/23/18 22:59 06:59 14:59 Intake Total 2568 700 180 Output Total 900 900 Balance 1668 -200 180 Lab Results - Last 24 hrs: Laboratory Results - last 24 hr 06/22/18 06/23/18 06/23/18 Range/Units 11:59 05:27 05:27 WBC 5.10 (3.98-10.04) K/mm3 RBC 4.24 (3.98-5.22) M/mm3 Hgb 12.7 (11.2-15.7) gm/L Hct 36.8 (34.1-44.9) % MCV 86.8 (79.4-94.8) fl MCH 30.0 (25.6-32.2) pg MCHC 34.5 (32.2-35.5) g/dl RDW Std Deviation 42.4 (36.4-46.3) fL Plt Count 230 (182-369) K/mm3 MPV 9.3 L (9.4-12.3) fl Neut % (Auto) 57.3 (34.0-71.1) % Lymph % (Auto) 30.4 (19.3-51.7) % [place] % (Auto) 7.8 (4.7-12.5) % Eos % (Auto) 3.3 (0.7-5.8) Baso % (Auto) 1.0 (0.1-1.2) % Neut # (Auto) 2.92 (1.56-6.13) K/mm3 Lymph # (Auto) 1.55 (1.18-3.74) K/mm3 [place] # (Auto) 0.40 H (0.24-0.36) K/mm3 Eos # (Auto) 0.17 (0.04-0.36) K/mm3 Baso # (Auto) 0.05 (0.01-0.08) K/mm3 Sodium 129 L (136-145) mEq/L Potassium 3.8 (3.5-5.1) mEq/L Chloride 95 L (98-107) mEq/L Carbon Dioxide 27 (21-32) mEq/L Anion Gap 10.8 (5-15) BUN 11 (7-18) mg/dL Creatinine 0.7 (0.55-1.02) mg/dL Est Cr Clr Drug Dosing 66.27 mL/min Estimated GFR (MDRD) > 60 (>60) mL/min BUN/Creatinine Ratio 15.7 (14-18) Glucose 85 (83-115) mg/dL Calcium 8.5 (8.5-10.1) mg/dL Magnesium 1.9 (1.8-2.4) mg/dl Troponin I 0.055 (0.00-0.056) ng/mL Med Orders - Current: Current Medications Acetaminophen (Tylenol) 650 mg PO Q4H PRN PRN Reason: Pain (Mild 1-3)/fever Last Admin: 06/22/18 11:14 Dose: 650 mg Albuterol (Proventil Neb Soln) 2.5 mg NEB Q2H PRN PRN Reason: Shortness Of Breath/wheezing Albuterol/Ipratropium (Duoneb 3.0-0.5 Mg/3 Ml) 3 ml NEB Q4H PRN PRN Reason: Shortness Of Breath/wheezing Bisacodyl (Dulcolax) 5 mg PO DAILY PRN PRN Reason: Constipation Docusate Sodium (Colace) 100 mg PO BID PRN PRN Reason: Constipation Famotidine (Pepcid) 20 mg PO BID [facility] Last Admin: 06/23/18 10:35 Dose: Not Given Hydrochlorothiazide (Hydrochlorothiazide) 12.5 mg PO DAILY [facility] Last Admin: 06/23/18 10:34 Dose: Not Given Hydromorphone HCl (Dilaudid) 0.25 mg IVPUSH Q2H PRN PRN Reason: Pain (severe 7-10) Sodium Chloride (Normal Saline) 1,000 mls @ 150 mls/hr IV ASDIRECTED [facility] Last Admin: 06/22/18 03:40 Dose: 150 mls/hr Diltiazem HCl 125 mg/ Sodium (Chloride) 125 mls @ 15 mls/hr IV TITRATE [facility]; Protocol Last Titration: 06/22/18 09:15 Dose: 0 mg/hr, 0 mls/hr Levothyroxine Sodium (Levothyroxine) 112 mcg PO ACBRK [facility] Last Admin: 06/23/18 05:13 Dose: 112 mcg Lisinopril (Prinivil) 10 mg PO DAILY [facility] Last Admin: 06/23/18 10:35 Dose: Not Given Magnesium Hydroxide (Milk Of Magnesia) 30 ml PO Q12H PRN PRN Reason: Constipation Magnesium Sulfate (Pharmacy To Dose - Magnesium Replacement) 1 dose .XX ASDIRECTED PRN PRN Reason: RX TO WATCH MAG LEVELS Metoprolol Tartrate (Lopressor) 25 mg PO Q12HR [facility] Last Admin: 06/23/18 10:34 Dose: Not Given Ondansetron HCl (Zofran Odt) 4 mg PO Q4H PRN PRN Reason: nausea, able to take PO Ondansetron HCl (Zofran) 4 mg IV Q4H PRN PRN Reason: Nausea/Vomiting Oxycodone/Acetaminophen (Percocet 325-5 Mg) 1 tab PO Q4H PRN PRN Reason: Pain (moderate 4-6) Polyethylene Glycol (Miralax) 17 gm PO DAILY PRN PRN Reason: Constipation Potassium Chloride (Pharmacy To Dose - Potassium Replacement) 1 dose .XX ASDIRECTED PRN PRN Reason: RX TO WATCH K LEVELS Rivaroxaban (Xarelto) 20 mg PO DAILY@1800 [facility] Last Admin: 06/22/18 17:46 Dose: 20 mg Senna/Docusate Sodium (Senna Plus) 1 tab PO BID PRN PRN Reason: Constipation Simvastatin (Zocor) 10 mg PO BEDTIME [facility] Last Admin: 06/22/18 20:06 Dose: 10 mg Temazepam (Restoril) 7.5 mg PO BEDTIME PRN PRN Reason: Sleep Discontinued Medications Diltiazem HCl (Cardizem) 5 mg IVPUSH ONETIME STA Stop: 06/21/18 18:18 Last Admin: 06/21/18 18:35 Dose: 5 mg Diltiazem HCl (Cardizem) 5 mg IVPUSH ONETIME STA Stop: 06/21/18 19:18 Last Admin: 06/21/18 19:25 Dose: 5 mg Hydrochlorothiazide (Hydrochlorothiazide) 12.5 mg PO DAILY [facility] Diltiazem HCl 125 mg/ Sodium (Chloride) 125 mls @ 10 mls/hr IV TITRATE [facility]; Protocol Last Admin: 06/21/18 18:34 Dose: 10 mg/hr, 10 mls/hr Magnesium Sulfate 2 gm/ Premix 50 mls @ 50 mls/hr IV ONETIME ONE Stop: 06/21/18 20:04 Last Admin: 06/21/18 19:26 Dose: 50 mls/hr Potassium Chloride 10 meq/ (Premix) 100 mls @ 100 mls/hr IV Q1H [facility] Stop: 06/22/18 01:14 Last Admin: 06/22/18 01:04 Dose: 100 mls/hr Magnesium Sulfate (Magnesium Sulfate 2 Gm In Water 50 Ml) 50 mls @ 25 mls/hr IV ONETIME ONE Stop: 06/21/18 23:59 Last Admin: 06/21/18 22:39 Dose: 25 mls/hr Ketorolac Tromethamine (Toradol) 30 mg IV Q6H PRN PRN Reason: Pain (moderate 4-6) Non-Formulary Medication (Lisinopril/Hydrochlorothiazide) 0 mg PO DAILY [facility] Rivaroxaban (Xarelto) 20 mg PO ONETIME STA Stop: 06/21/18 18:48 Last Admin: 06/21/18 18:55 Dose: 20 mg - Exam General: Reports: Alert, Oriented, Cooperative, No Acute Distress HEENT: Reports: Pupils Equal, Pupils Reactive, EOMI, Mucous Membr. Moist/[place] Neck: Reports: Supple Lungs: Reports: Clear to Auscultation, Normal Respiratory Effort Cardiovascular: Reports: Regular Rate, Regular Rhythm GI/Abdominal Exam: Normal Bowel Sounds, Soft, Non-Tender, No Distention, No Abnormal Bruit, No Mass (Female) Exam: Deferred Rectal (Female) Exam: Deferred Back Exam: Reports: Normal Inspection, Full Range of Motion Extremities: Normal Inspection, Normal Range of Motion, Non-Tender, No Pedal Edema, Normal Capillary Refill Skin: Reports: Warm, Dry, Intact Neurological: Reports: No New Focal Deficit Psy/Mental Status: Reports: Alert, Normal Affect, Normal Mood
--- NOTE | 2018-06-24 08:46 | CR ---
Chest: Portable view of the chest was obtained. Comparison: No prior chest x-ray. Heart size is normal. Tortuous thoracic aorta is seen. Lungs are clear. Bony structures are grossly intact. Impression: 1. Nothing acute is seen on portable chest x-ray. Diagnostic code #1
== END 2018-06-23 11:40 | disposition home or self-care (01) | DRG 309 ==
LOC: JD.ED 18:01 → JD.ICU 20:18
PROVIDERS: ADMIT Internal Medicine; ATTEND Internal Medicine
DX: I48.91 Unspecified atrial fibrillation (principal); E87.1 Hypo-osmolality and hyponatremia; I10 Essential (primary) hypertension; E03.9 Hypothyroidism, unspecified; K64.9 Unspecified hemorrhoids; M85.80 Other specified disorders of bone density and structure, unspecified site; R74.8 Abnormal levels of other serum enzymes; K59.09 Other constipation; E78.5 Hyperlipidemia, unspecified; E87.6 Hypokalemia; E83.42 Hypomagnesemia; M54.32 Sciatica, left side; Z79.899 Other long term (current) drug therapy
CPT/HCPCS: 36415; 71045; 71045-26; 80048; 80053; 80061; 83735; 84443; 84484; 85007; 85025; 85027; 85379; 93005; 93010; 96365; 96366; 96368; 99285-25; A9270-GY; J3475; J3480; J3490; J7030; J7040